=== PATIENT | male | born 1955 | race Caucasian/White ===

== ENCOUNTER 2016-12-26 13:46 | Emergency (ER) ==
--- NOTE | 2016-12-26 14:47 | PROVIDER DOCUMENTATION ---
HPI-Musculoskeletal Pain/Inj - GENERAL Source: patient - HX OF PRESENT ILLNESS-MUSKULOSKELTAL Quality of Pain: reports: aching Severity in ED: moderate Onset/Duration: last night Timing: still present Any recent injury?: Yes Locality of Occurance: Home Similar Symptoms Previously?: No Recently seen or treated by another doctor?: No <Michael Daniel - Last Filed: 12/26/16 14:43> <Rachel Catherine - Last Filed: 12/26/16 15:03> - GENERAL Chief Complaint: Fall Stated Complaint: FALL/SHOULDER PAIN Time Seen by Provider: 12/26/16 14:06 - HX OF PRESENT ILLNESS-MUSKULOSKELTAL Nature of Presenting Problem: Reports was walking dog on leash yesterday on slick surface the leash got wrapped around right leg pt fell landing on right shoulder. Denies head injury, loc or neck pain. pt does complain of right shoulder pain. Reports when he has it tucked in it doesn't hurt but upon movement its 9/10 pain. (Michael Daniel) Review of Systems - Adult - REVIEW OF SYSTEMS - ADULT Constitutional: denies: chills, fever, fatique Eyes: reports: no symptoms reported Ears, Nose, Mouth & Throat: reports: no symptoms reported Cardiovascular: denies: chest pain, irregular heart rate, orthopnea Respiratory: reports: no symptoms reported Gastrointestinal: reports: no symptoms reported Genitourinary: reports: no symptoms reported Musculoskeletal: reports: see HPI, bone pain. denies: frequent leg cramps, joint pain, joint swelling, neck pain Integumentary: reports: no symptoms reported Neurological: reports: no symptoms reported Psychiatric: reports: no symptoms reported Endocrine: reports: no symptoms reported Hematologic/Lymphatic: reports: no symptoms reported Allergic/Immunologic: reports: no symptoms reported All Other Systems: Reviewed and Negative <Michael Daniel - Last Filed: 12/26/16 14:43> Past History - Adult - PAST MEDICAL HISTORY-ADULT Review of Records: reports: Nursing Assessment Review, Medications Reviewed Major Childhood Illnesses: reports: denies history Cardiovascular: reports: HTN Respiratory: reports: denies history Gastrointestinal: reports: denies history Obstetrical/Gynecological: reports: denies history Genitourinary: reports: denies history Musculoskeletal: reports: denies history Neurological: reports: Multiple Sclerosis Endocrine/Immune: reports: Diabetes Other Conditions: reports: denies history - IMMUNIZATION STATUS Childhood Immunizations: See Nurse Assessment Flu Vaccine: See Nurse Assessment - FAMILY HISTORY Family History: reviewed, not pertinent - SOCIAL HISTORY Smoking: denies Substance Use: none/never <Michael Daniel - Last Filed: 12/26/16 14:43> Physical Exam-Injury Related - Physical Exam-Injury Related Initial Vital Signs Reviewed: Yes General Appearance: appears well, alert, no apparent distress Eyes: PERRL/EOMI, pink conjunctivae Neck: non-tender, full range of motion, supple, normal inspection Respiratory: chest non-tender, lungs clear, normal breath sounds, no pleuratic chest pain, no respiratory distress, no accessory muscle use Cardiovascular: regular rate, rhythm Peripheral Pulses: radial (R): 2+, radial (L): 2+ Abdominal Exam: normal bowel sounds, non tender, soft, no organomegaly, no pulsatile mass Lymphatic: no adenopathy Back Exam: normal inspection, no CVA tenderness, no vertebral tenderness Extremity: normal gait, normal inspection, no pedal edema, no calf tenderness, normal capillary refill. negative: normal range of motion (right shoulder very limited rom due to pain no obvious deformity painful to palpate) Integumentary: normal color, warm/dry Psych/Mental Status: normal mood/affect, normal thought content, normal thought process, oriented x 3 - Glascow Coma Score Best Eye Response ([place]): (4) open spontaneously Best Verbal Response ([place]): (5) oriented Best Motor Response (Joycelyn): (6) obeys commands [place] Total: 15 <Michael Daniel - Last Filed: 12/26/16 14:43> Progress <Michael Daniel - Last Filed: 12/26/16 14:43> - XRAY 1 XRAY: Right XRAY Study: Shoulder Impression: See EMR Report (? scapular neck fx, per Dr. Herron) 2 XRAY: Right XRAY Study: other (scapula) Impression: See EMR Report (No additional abnormality, per Dr. Herron) - CONSULTS/PCP/HOSPITALIST Notification #1 *Consult/PCP/Hospitalist*: Dr. Omer Time Discussed: 14:50 Reason/Comments: scapula neck fx Consult Disposition: F/U in office (Saturday or Saturday) <Rachel Catherine - Last Filed: 12/26/16 15:03> - PLAN OF CARE/RESULTS Progress/Plan/Lab Results: Orders Category Date Time Status SCAPULA-RIGHT [RAD] Stat Exams 12/26/16 14:26 Taken SHOULDER-RIGHT [RAD] Stat Exams 12/26/16 13:59 Taken Vital Signs - 24 hr 12/26/16 13:57 Temperature 97.8 F Pulse Rate 78 Respiratory 18 Rate Blood Pressure 141/88 O2 Sat by Pulse 98 Oximetry (Michael Daniel) Discussed results and tx with pt, including f/u with orthopedics. (Rahcel Catherine) Departure <Michael Daniel - Last Filed: 12/26/16 14:43> - Departure Time of Disposition Order: 14:54 Certified Medical Emergency: Emergent <Rachel Catherine - Last Filed: 12/26/16 15:03> - Departure DIAGNOSIS: Fracture of neck of scapula Qualifiers: Encounter type: initial encounter Fracture type: closed Fracture alignment: nondisplaced Laterality: right Qualified Code(s): S42.154A - Nondisplaced fracture of neck of scapula, right shoulder, initial encounter for closed fracture Disposition: HOME 01 Condition: Stable Additional Instructions: Follow up with Dr. Omer for further management. RICE or heat as needed; keep in sling at all times. Consider sleeping in a recliner for more comfort. ED Follow Up Instructions: You have been treated by a care provider in the Emergency Department. These instructions are being provided to you so you can have an understanding of how to care for yourself upon discharge. Upon discharge from the Emergency Department, you are responsible for making arrangements for follow-up care by a physician of your choice. Take all prescribed medications as directed. Return to the Emergency Department immediately for any new or worsening symptoms. You may call the Physician Referral phone number at [phone] to obtain a list of Physicians who are taking new patients. Prescriptions: Hydrocodone/APAP 7.5 mg/325 mg [[place]-7.5] 1 each PO Q6H PRN PRN #20 tablet PRN Reason: Pain Ondansetron [Zofran] 4 mg PO Q6H PRN PRN #20 tablet PRN Reason: Nausea Referrals: Bobby Pavon MD [Primary Care Provider] - Renan Omer MD [STAFF PHYSICIAN] - Attestation - Scribe Verification/Attestation Scribe:: Michael Daniel Acting as Scribe for:: Rachel Catherine Scribe documention review:: This chart was documented by a scribe and accurately reflects the service the provider performed and the decisions made by the provider. <Michael Daniel - Last Filed: 12/26/16 14:43> Physician Attestation
[2016-12-26 15:16] VITALS: BP 132/77
--- NOTE | 2016-12-26 15:17 | Diag Imaging Result Document ---
PROCEDURE NAME: SHOULDER-RIGHT - 12/26/2016 RIGHT SHOULDER, 3 VIEWS: FINDINGS: There is apparent cortical wrinkle at the level of the neck of the glenoid inferiorly. The possibility of a minimally displaced fracture cannot be excluded. Otherwise, there is no evidence of fracture or dislocation. IMPRESSION: Questionable scapular fracture.
--- NOTE | 2016-12-26 15:21 | Diag Imaging Result Document ---
PROCEDURE NAME: SCAPULA-RIGHT - 12/26/2016 RIGHT SCAPULA 1 VIEW: FINDINGS: No definite fracture or dislocation is present. The abnormality seen on the original series is not visible on this view. IMPRESSION: No additional abnormality.
== END 2016-12-26 15:15 | disposition home or self-care (01) ==
LOC: ED 13:46
DX: S42.154A Nondisplaced fracture of neck of scapula, right shoulder, initial encounter for closed fracture (principal); M25.511 Pain in right shoulder; I10 Essential (primary) hypertension; G35 Multiple sclerosis; E11.9 Type 2 diabetes mellitus without complications; Z79.82 Long term (current) use of aspirin; Z79.899 Other long term (current) drug therapy; W01.0XXA Fall on same level from slipping, tripping and stumbling without subsequent striking against object, initial encounter
CPT/HCPCS: 73010